=== PATIENT | male | born 1980 | race Caucasian/White ===

== ENCOUNTER 2021-11-22 11:35 | Observation (INO) | payer BC, SELFPAY ==
[2021-11-22] VITALS (67 sets, daily range): BP systolic 139–188; BP diastolic 83–129; PULSE 74–133; RESP 11–33; TEMP 36.1–37; O2SAT 91–98; BMI 27.9
--- NOTE | ~2021-11-22 | CT_ITS ---
EXAMINATION: CT brain wo con DATE: 11/22/2021 13:24 INDICATION: Headache. Chronic hypertension. TECHNIQUE: Computed tomography (CT) of the head was performed without intravenous contrast. The mA wa s adjusted according to patient size. Iterative reconstruction technique was employed. Exam dose: 68 1.00 mGy-cm total exam DLP. COMPARISON: None FINDINGS: No intracranial mass lesion or hemorrhage or cerebrovascular accident. No midline shift or mass effect. Normal ventricular size. Normal norris-white matter differentiation. No subdural or epidur al hematoma. There is patchy soft tissue opacification of the ethmoid air cell. As a mucous retention cyst or smal l polyp in the left frontal sinus posterior right maxillary sinus. There is mucoperiosteal thickening and fluid at the left maxillary sinus. The mastoid air cells are normally developed and aerated. No fracture or bone destruction of the cranial vault IMPRESSION: Paranasal sinus disease No significant intracranial abnormality Reviewed, dictated and finalized at [facility] Reviewed, dictated and finalized at [facility]. ER ESTHETICIAN
--- NOTE | 2021-11-22 13:13 | ECG_ITS ---
Measurements Intervals [place] Rate: 73 P: 21 AL: 158 QRS: -7 QRSD: 97 T: -12 QT: 377 QTc: 416 Interpretive Statements SINUS RHYTHM VOLTAGE CRITERIA FOR LVH BORDERLINE T WAVE ABNORMALITY- INFERIOR LEADS BASELINE ARTIFACT- II, III, AVR, AVF, V1-V6 BORDERLINE ECG Electronically Signed On 11-22-2021 16:57:58 [employer]ATE [employer]SEMBLER by Jose Dacosta D.O.
--- NOTE | 2021-11-22 13:15 | ED.GENADULT ---
HPI - General Adult General Chief complaint: Recheck/Abnormal Lab/Rx Stated complaint: htn Time Seen by Provider: 11/22/21 13:06 Source: patient Mode of arrival: ambulatory Limitations: no limitations History of Present Illness HPI narrative: Patient is a 41-year-old male complaining of elevated blood pressure accompanied by headache that started 2 days ago. Patient states that he was at a dentist office few days ago was told that his blood pressure is elevated and needs to go to his primary care physician or urgent care to control his blood pressure before any procedure is done. Patient denies any history of hypertension. Patient denies any speech or visual disturbance, focal weakness or numbness, unsteady gait, chest pain, shortness of breath, abdominal pain, nausea, or vomiting. Related Data Home Medications Medication Instructions Recorded Confirmed No Home Medications 11/22/21 11/22/21 Allergies Allergy/AdvReac Type Severity Reaction Status Date / Time No Known Allergies Allergy Mild Verified 11/22/21 13:16 Review of Systems Review of Systems: All systems reviewed & are unremarkable except as noted in HPI and below Constitutional: Constitutional: Denies body ache(s), Denies chills, Denies excessive sweating, Denies fatigue, Denies fever(s), Denies headache(s), Denies lethargy, Denies malaise, Denies weakness and Denies weight loss Eyes: Eyes: Denies blurry vision, Denies change in vision and Denies loss of vision ENT: Denies dizziness, Denies ear discharge, Denies headache(s), Denies lip swelling, Denies epistaxis, Denies nasal congestion, Denies neck pain, Denies throat swelling and Denies tongue swelling Cardiovascular: Cardiovascular: Denies chest pain, Denies chest pain at rest, Denies chest pain with activity, Denies diaphoresis, Denies rapid heart rate, Denies edema, Denies irregular heart rhythm, Denies lightheadedness, Denies palpitations, Denies dyspnea and Denies dyspnea on exertion Respiratory: Respiratory: Denies chest congestion, Denies cough, Denies hemoptysis, Denies dyspnea and Denies dyspnea on exertion Gastrointestinal: Gastrointestinal: Denies abdominal pain, Denies melena, Denies hematochezia, Denies diarrhea, Denies nausea, Denies vomiting and Denies hematemesis Musculoskeletal: Musculoskeletal: Denies abnormal gait, Denies deformity, Denies joint swelling, Denies limited range of motion, Denies neck pain and Denies numbness Neurologic: Denies Abnormal speech present, Denies abnormal gait, Denies confusion, Denies dizziness, Denies focal weakness, Denies loss of vision, Denies numbness, Denies Other visual disturbances, Denies Sensory deficit (Neuro) and Denies weakness Psychiatric: Psychiatric: Denies confusion, Denies depression, Denies auditory hallucinations, Denies homicidal ideation and Denies suicidal ideation Endocrine: Endocrine: Denies cold intolerance, Denies excessive sweating, Denies fatigue, Denies heat intolerance and Denies palpitations Hematologic/Lymphatic: Hematologic/Lymphatic: Denies easy bleeding and Denies easy bruising Allergic/Immunologic: Allergic/Immunologic: Denies lip swelling, Denies throat swelling and Denies tongue swelling PMFSH Comments Past medical history: None Family history: Hypertension Social history: Non-smoker no EtOH or drug use Exam Const: General: cooperative, healthy appearing, comfortable, no acute distress, well developed, alert and awake; No confusion Orientation/consciousness: oriented to person, oriented to place, oriented to time, patient oriented x3 and No confusion Limitations: no limitations HENMT: Head: normal to inspection, normocephalic and atraumatic Ears: hearing grossly normal bilaterally, TM normal on the right and TM normal on the left General nose exam: Normal external nose present, Normal nares present and No nasal discharge present Face and sinus: normal facial exam Mouth: Yes Normal oral and palatal mucosa present, Yes lip no
[2021-11-22] MEDS: ONDANSETRON INJ 4 MG/2 ML VIAL IV PUSH (14:14)
[2021-11-22] MEDS: LABETALOL HCL INJ 100 MG/20 ML VIAL 20 MG IV PUSH ×2 (14:14→19:06)
[2021-11-22 14:18] LABS: Basophils Absolute Auto 0.1 K/mm3 (0.0-0.1); Basophils Percent Auto 0.6 % (0.2-1.2); Eosinophils Percent Auto 0.3 % (0-4.4); Hematocrit 48.4 % (42.0-52.0); Hemoglobin 16.8 g/dL (14.0-18.0); Immature Granulocyte Percent A 0.9 % (0-0.5); Lymphocytes Absolute Auto 1.14 K/mm3 (0.9-3.2); Lymphocytes Percent Auto 9.9 % (18.3-44.2); Mean Corpuscular HGB Conc 34.7 g/dl (32-36); Mean Corpuscular Hemoglobin 29.1 pg (26-34); Mean Corpuscular Volume 83.7 fl (80-100); Mean Platelet Volume 10.2 fl (7.4-10.4); Monocytes Absolute Auto 0.8 K/mm3 (0.1-0.6); Monocytes Percent Auto 6.5 % (2.6-8.5); Neutrophils Absolute Auto 9.4 K/mm3 (1.3-6.7); Neutrophils Percent Auto 81.8 % (45.5-73.1); Platelet Count Result 277 k/mm3 (150-375); Red Blood Count 5.78 M/mm3 (4.6-6.20); Red Cell Distribution Width 12.3 % (11.5-14.5); White Blood Count 11.5 K/mm3 (4.5-10.0)
[2021-11-22 14:29] LABS: Anion Gap 9 mmol/L (8-16); Blood Urea Nitrogen 12 mg/dL (9-20); Calcium 9.3 mg/dL (8.4-10.2); Carbon Dioxide 26 mmol/L (22-30); Chloride 100 mmol/L (98-107); Estimated CRCL calculation 92 ml/min; Estimated Glomerular Filt Rate > 60; Glucose 142 mg/dL (65-110); Potassium 4.1 mmol/L (3.4-5.0); Sodium 135 mmol/L (137-145)
[2021-11-22] MEDS: hydrALAZINE HCL 20 MG/ML VIAL 10 MG IV PUSH ×2 (14:50→16:40)
--- NOTE | 2021-11-22 15:21 | ECG_ITS ---
Measurements Intervals [place] Rate: 108 P: 57 SD: 127 QRS: 72 QRSD: 79 T: 7 QT: 315 QTc: 423 Interpretive Statements SINUS TACHYCARDIA NONSPECIFIC T-WAVE ABNORMALITY- ANT/INF LEADS BASELINE WANDER- I, III ABNORMAL ECG Electronically Signed On 11-23-2021 14:27:49 [employer]ICE MACHINE MECHANIC by Jose Dacosta D.O.
[2021-11-22] MEDS: LACTATED RINGERS 1,000 ML 125 ML IV CONT (18:34)
--- NOTE | 2021-11-22 18:43 | PC.NURSE ---
Pt had an additional episode of emesis, BP 180/100. MD aware, verbal order to give 12.5 IV phenergan and PRN Labetalol for HTN
[2021-11-22] MEDS: PROMETHAZINE HCL 25 MG/ML AMPUL 12.5 MG IV PUSH (19:06)
--- NOTE | 2021-11-22 19:14 | PC.NURSE ---
Mini NS bag used to dilute phenergan
--- NOTE | 2021-11-22 20:16 | PM.IMHP ---
H&P: HPI History of Present Illness Date/Time: 11/22/21 20:16 Chief Complaint: Headache Narrative: This is a 41-year-old male with past medical history significant for hypertension according to the patient is was diagnosed roughly 2 years ago however patient has not had any treatment for it. Patient comes to the emergency room today after he was seeking out medical care for his uncontrolled blood pressure he had been in to the dentist for a procedure but could not get it done due to his blood pressure being high and was advised to go to the emergency room. At the time of my visit patient was complaining of a slight headache much better from arrival after patient received labetalol and hydralazine. Patient denies any chest pain, any blurry vision, dizziness, lightheadedness, near-syncope, syncope, claudication, ankle swelling, PND ,orthopnea, no cough, however patient had an episode of nausea and vomiting in the emergency room. Preliminary workup was significant for CT of the head with no intracranial abnormalities. Decision has been made to admit the patient for further evaluation management and treatment. Review of Systems Review of Systems: Headache, High blood pressure. Constitutional: Constitutional: Denies chills, Denies excessive sweating, Denies fatigue, Denies fever(s), Reports headache(s) and Denies night sweats Eyes: Eyes: Denies change in vision ENT: Denies dysphagia, Denies vertigo, Denies dizziness, Reports headache(s), Denies nasal congestion, Denies nasal discharge, Denies nasal obstruction and Denies odynophagia Cardiovascular: Cardiovascular: Denies chest pain, Denies pedal edema, Denies irregular heart rhythm, Denies leg edema, Denies lightheadedness, Denies radiating jaw, neck or arm pain, Denies palpitations, Denies dyspnea, Denies dyspnea on exertion and Denies orthopnea Respiratory: Respiratory: Denies cough, Denies excessive phlegm production, Denies dyspnea and Denies wheezing Gastrointestinal: Gastrointestinal: Denies abdominal pain, Denies dyspepsia, Denies heartburn, Reports nausea and Reports vomiting Genitourinary: Genitourinary: Denies dysuria and Denies flank pain Musculoskeletal: Musculoskeletal: Denies myalgias Integumentary/Breasts: Skin/Breast: Denies rash Neurologic: Denies vertigo, Denies dizziness, Denies syncope, Reports headache(s), Denies focal weakness and Denies Sensory deficit (Neuro) Psychiatric: Psychiatric: Reports no additional psychiatric complaints and Reports as per HPI Endocrine: Endocrine: Denies polyphagia, Denies polydipsia, Denies polyuria and Denies palpitations Hematologic/Lymphatic: Hematologic/Lymphatic: Reports no additional hematologic/lymphatic complaints and Reports as per HPI Allergic/Immunologic: Allergic/Immunologic: Reports no additional allergic/immunologic complaints and Reports as per HPI [facility] Family History Family History (Updated 11/22/21 @ 21:28 by Demetra Haynes RN) Other Unknown family medical history Social History Social History Smoking status: Never smoker Alcohol intake: current Drinks per week: 1 Substance use: never Spiritual care concerns: No Meds Home Medications and Allergies Home Medications Medication Instructions Recorded Confirmed Type Adults Multivitamin 1 tab-cap PO DAILY 11/22/21 11/22/21 History lisinopril 20 mg PO DAILY #30 tablet 11/22/21 Rx Allergies Allergy/AdvReac Type Severity Reaction Status Date / Time No Known Allergies Allergy Mild Verified 11/22/21 13:16 Vital Signs Vital Signs - 24 hr 11/22/21 12:01 11/22/21 13:05 11/22/21 13:12 Temperature 98.6 F Pulse Rate 82 90 Respiratory Rate 16 15 Blood Pressure 180/129 H 188/120 H 188/120 H Pulse Oximetry 96 97 11/22/21 13:15 11/22/21 13:16 11/22/21 13:42 Temperature Pulse Rate 83 82 83 Respiratory Rate 14 15 13 Blood Pressure 184/118 H 184/118 H Pulse Oximetry 98 97 96 11/22/21 13:45 11/22/21 13:46 1
--- NOTE | 2021-11-22 21:28 | ADMGEN ---
This patient, Fidel Montes, was admitted to Medical Room 247-. Patient/family oriented to hospital policies and general routines including ID bracelet, bed and alarms, visiting hours, pain management, procedures, bathroom and other care routines, personal items, smoking policy, room service/diet, and visiting hours. Information on how to activate the Rapid Response Team has been discussed. Patient/Family are encouraged to report perceived risks to care and to ask questions if they do not understand what they are told or what they should do.
[2021-11-23] VITALS (15 sets, daily range): BP systolic 128–148; BP diastolic 72–101; PULSE 79–110; RESP 16–18; TEMP 36.1–36.7; O2SAT 94–99
--- NOTE | 2021-11-23 | ECHO_ITS ---
Patient Info Name: Fidel Montes Age: 41 years : 1980 Gender: Male Ht: 71 in Wt: 200 lbs BSA: 2.15 m2 HR: 87 bpm BP: 128 / 72 mmHg Heart Rhythm: Sinus Rhythm Technical Quality: Good Exam Date: 11/23/2021 7:00 AM Exam Location: [facility] Patient Status: Inpatient Admit Date: 11/22/2021 Staff Ordering Physician: Westley Oro MD Screwhead Stoner And Polisher: Shonna Hernandez RDCS Attending Provider: Andrea Donis MD Referring Physician: Shorty GRULLON; Exam Type: CA echo doppler color flow Study Info Indications - htn Complete two-dimensional, color flow and Doppler transthoracic echocardiogram is performed. Summary 1. Complete two-dimensional, color flow and Doppler transthoracic echocardiogram is performed. 2. Left ventricular chamber dimension is normal. 3. Left ventricular systolic function is normal, estimated at 60-65%. 4. There is mildly increased left ventricular wall thickness. 5. The left ventricular diastolic function is normal. 6. There is mild mitral valve regurgitation. 7. There is mild pulmonic regurgitation. Left Ventricle Left ventricular chamber dimension is normal. Left ventricular systolic function is normal, estimated at 60-65%. There is mildly increased left ventricular wall thickness. The left ventricular diastolic function is normal. Right Ventricle Right ventricular chamber dimension is normal. Right ventricular systolic function is normal. Left Atria Left atrial chamber dimension is normal. Right Atria Right atrial chamber dimension is normal. Atrial Septum Intact interatrial septum visualized by color flow imaging. Aortic Valve The aortic valve is trileaflet. There is no aortic valve sclerosis. There is no aortic valve stenosis. There is trace aortic valve regurgitation. Pulmonic Valve The pulmonic valve is normal. There is no pulmonic valve stenosis. There is mild pulmonic regurgitation. Mitral Valve The mitral valve has normal leaflets. There is no mitral valve stenosis. There is mild mitral valve regurgitation. Tricuspid Valve The tricuspid valve leaflets are normal. There is no significant tricuspid valve stenosis. There is trace tricuspid valve regurgitation. Pericardium/Pleural The pericardium appears normal. There is no pericardial effusion. Aorta The aortic root size at the sinus of Valsalva is normal. The prox ascending aorta size is normal. Left Ventricular Outflow Tract Name Value Normal LVOT 2D LVOT Diameter 2.2 cm LVOT Doppler LVOT Peak Gradient 4 mmHg LVOT Mean Gradient 1 mmHg LVOT VTI 18 cm LVOT VTI/AV VTI Ratio 0.9 LVOT Stroke Volume 73 ml LVOT CO 6.0 l/min LVOT CI 2.9 l/min/m2 Pulmonic Valve Name Value Normal
[2021-11-23] MEDS: IMIPRAMINE HCL 25 MG TABLET PO ×2 (01:26→20:06)
[2021-11-23] MEDS: LACTATED RINGERS 1,000 ML 125 ML IV CONT (06:08)
[2021-11-23] MEDS: hydroCHLOROthiazide 25 MG TABLET PO (08:10)
[2021-11-23] MEDS: lisinopriL 20 MG TABLET 40 MG PO (08:10)
--- NOTE | 2021-11-23 09:09 | PM.IMPN ---
Progress Note: A&P Assessment and Plan (1) Hypertensive urgency: Code(s): I16.0 - Hypertensive urgency Status: Acute Assessment and Plan: BP improving with antihypertensives Continue lisinopril 40 p.o. daily and hydrochlorothiazide 25 p.o. daily Renal ultrasound pending Echocardiogram pending CT-->no significant intracranial abnormality ECG showed NSR Nephrology consulted Tele monitoring (2) Frontal headache: Code(s): R51.9 - Headache, unspecified Status: Acute Assessment and Plan: Likely secondary to uncontrolled blood pressure Supportive care Continue to monitor CT head with no acute intracranial abnormality (3) Nausea and vomiting: Code(s): R11.2 - Nausea with vomiting, unspecified Status: Acute Assessment and Plan: Likely secondary to uncontrolled blood pressure Supportive care Continue to monitor Additional Plan SCDs Subjective Date/time seen: 11/23/21 09:09 Interval history: Pt seen this a.m.; no acute events overnight; pt denies any [place], dizziness, CP, SOB Review of Systems Review of Systems: All systems reviewed & are unremarkable except as noted in HPI and below Exam Const: General: no acute distress, alert and awake Orientation/consciousness: patient oriented x3 HENMT: Head: normocephalic and atraumatic Ears: hearing grossly normal bilaterally Face and sinus: face symmetric Mouth: Yes Normal oral and palatal mucosa present Eyes: EOM: EOMs intact bilaterally Neck: Neck: full ROM, trachea midline and no JVD Resp: Effort & Inspection: normal respiratory effort Auscultation: clear to auscultation bilaterally Cardio: Jugular venous distension: no JVD Rate: regular rate Rhythm: regular rhythm Heart sounds: S1 normal heart sound present and S2 normal heart sound present GI: GI Palp: Yes Soft to palpation Auscultation: normal bowel sounds : General: Yes no CVA tenderness Skin: General skin exam: normal color Rashes: no rashes Neuro: General: patient oriented x3, moves all extremities and no focal motor deficits Speech: normal speech Extrem: General: no clubbing, cyanosis or edema Psych: Appearance: grossly normal Affect: normal affect Judgement: Good judgement present (Psych) Objective Data Vital Signs Vital Signs: Vital Signs - 24 hr 11/22/21 12:01 11/22/21 13:05 11/22/21 13:12 Temperature 37.0 C Pulse Rate 82 90 Respiratory Rate 16 15 Blood Pressure 180/129 H 188/120 H 188/120 H Pulse Oximetry 96 97 11/22/21 13:15 11/22/21 13:16 11/22/21 13:42 Temperature Pulse Rate 83 82 83 Respiratory Rate 14 15 13 Blood Pressure 184/118 H 184/118 H Pulse Oximetry 98 97 96 11/22/21 13:45 11/22/21 13:46 11/22/21 14:00 Temperature Pulse Rate 78 75 Respiratory Rate 11 L 15 16 Blood Pressure 170/114 H 170/114 H Pulse Oximetry 95 96 11/22/21 14:15 11/22/21 14:16 11/22/21 14:30 Temperature Pulse Rate 83 80 78 Respiratory Rate 20 20 13 Blood Pressure 174/105 H 174/105 H 180/112 H Pulse Oximetry 96 96 94 11/22/21 14:31 11/22/21 14:32 11/22/21 14:46 Temperature Pulse Rate 79 78 94 Respiratory Rate 12 15 Blood Pressure 180/112 H 170/114 H 170/114 H Pulse Oximetry 95 94 94 11/22/21 14:53 11/22/21 14:54 11/22/21 14:55 Temperature Pulse Rate 74 75 80 Respiratory Rate 18 17 13 Blood Pressure 175/106 H 175/106 H Pulse Oximetry 96 95 93 11/22/21 15:00 11/22/21 15:01 11/22/21 15:15 Temperature Pulse Rate 87 98 85 Respiratory Rate 19 20 16 Blood Pressure 165/106 H 163/106 H 164/100 H Pulse Oximetry 95 96 94 11/22/21 15:30 11/22/21 15:31 11/22/21 15:45 Temperature Pulse Rate 86 106 H 87 Respiratory Rate 15 17 13 Blood Pressure 160/104 H 160/104 H 158/100 H Pulse Oximetry 94 96 96 11/22/21 15:52 11/22/21 16:00 11/22/21 16:15 Temperature Pulse Rate 93 94 93 Respiratory Rate 21 H 15 14 Blood Pressure 169/120 H Pulse Oximetry 96 95 93 11/22/21 16
[2021-11-24] VITALS: PULSE 78
[2021-11-24 03:47] VITALS: BP 126/83; PULSE 86; RESP 18; TEMP 36.6; O2SAT 97
[2021-11-24 04:00] VITALS: PULSE 95
[2021-11-24 05:06] LABS: Hematocrit 47.7 % (42.0-52.0); Hemoglobin 15.7 g/dL (14.0-18.0); Mean Corpuscular HGB Conc 32.9 g/dl (32-36); Mean Corpuscular Hemoglobin 28.3 pg (26-34); Mean Corpuscular Volume 86.1 fl (80-100); Mean Platelet Volume 9.8 fl (7.4-10.4); Platelet Count Result 250 k/mm3 (150-375); Red Blood Count 5.54 M/mm3 (4.6-6.20); Red Cell Distribution Width 12.6 % (11.5-14.5)
[2021-11-24 05:30] LABS: Anion Gap 0 mmol/L (8-16); Blood Urea Nitrogen 16 mg/dL (9-20); Calcium 9.2 mg/dL (8.4-10.2); Carbon Dioxide 34 mmol/L (22-30); Chloride 101 mmol/L (98-107); Estimated CRCL calculation 72 ml/min; Estimated Glomerular Filt Rate > 60; Glucose 104 mg/dL (65-110); Potassium 4.4 mmol/L (3.4-5.0); Sodium 135 mmol/L (137-145)
--- NOTE | 2021-11-24 08:05 | PM.IMPN ---
Progress Note: A&P Assessment and Plan (1) Hypertensive urgency: Code(s): I16.0 - Hypertensive urgency Status: Acute Assessment and Plan: BP improving with antihypertensives Continue lisinopril 40 p.o. daily and hydrochlorothiazide 25 p.o. daily Renal ultrasound pending Echocardiogram normal CT-->no significant intracranial abnormality ECG showed NSR Nephrology consulted Tele monitoring (2) Frontal headache: Code(s): R51.9 - Headache, unspecified Status: Acute Assessment and Plan: Likely secondary to uncontrolled blood pressure Supportive care Continue to monitor CT head with no acute intracranial abnormality (3) Nausea and vomiting: Code(s): R11.2 - Nausea with vomiting, unspecified Status: Acute Assessment and Plan: Likely secondary to uncontrolled blood pressure Supportive care Continue to monitor Additional Plan SCDs Subjective Date/time seen: 11/24/21 08:05 Interval history: 11/24/2021 Review of Systems Review of Systems: All systems reviewed & are unremarkable except as noted in HPI and below Exam Narrative: GENERAL: The patient is well developed, not in acute distress HEENT: Nonicteric sclerae, PERRLA, EOMI. Oropharynx clear. Moist mucous membranes. Conjunctivae appear well perfused. CHEST: Chest wall is nontender. HEART: Regular rate and rhythm without murmur, rubs, or gallops LUNGS: Clear to auscultation bilaterally. no respiratory distress ABDOMEN: Soft, positive bowel sounds, non-tender, no organomegaly. SKIN: No rash, no excessive bruising, petechiae, or purpura. NEUROLOGIC: Cranial nerves II-XII intact, alert and oriented x 3, no gross motor deficits EXTREMITIES: no edema, cyanosis or clubbing Objective Data Vital Signs Vital Signs: Vital Signs - 24 hr 11/23/21 10:00 11/23/21 10:36 11/23/21 12:00 Temperature 97.0 F L Pulse Rate 79 92 Respiratory Rate 16 Blood Pressure 139/89 147/89 H Pulse Oximetry 99 11/23/21 13:36 11/23/21 16:00 11/23/21 18:00 Temperature 97.3 F L 98.0 F Pulse Rate 83 97 92 Respiratory Rate 18 16 Blood Pressure 148/90 H 141/83 H Pulse Oximetry 99 96 11/23/21 19:57 11/23/21 20:00 11/23/21 23:27 Temperature 97.8 F 97.3 F L Pulse Rate 79 86 86 Respiratory Rate 17 17 18 Blood Pressure 134/86 142/93 H Pulse Oximetry 97 97 96 11/24/21 00:00 11/24/21 03:47 11/24/21 04:00 Temperature 97.8 F Pulse Rate 78 86 95 Respiratory Rate 18 Blood Pressure 126/83 Pulse Oximetry 97 Intake/Output Intake/Output: Intake & Output 11/21/21 11/22/21 11/23/21 11/24/21 23:59 23:59 23:59 23:59 Intake Total 2770 1200 Balance 2770 1200 Meds/Results Medications: Active Medications Generic Name Dose Route Start Last Admin Trade Name Freq PRN Reason Stop Dose Admin Hydrochlorothiazide 25 mg 11/23/21 09:00 11/23/21 08:10 Hydrochlorothiazide 25 Mg Tablet PO 25 mg QAM YENIFER Administration Imipramine HCl 25 mg 11/23/21 01:20 11/23/21 20:06 Imipramine Hcl 25 Mg Tablet PO 25 mg HS YENIFER Administration Labetalol HCl 20 mg 11/22/21 21:00 11/22/21 19:06 Labetalol Hcl Inj 100 Mg/20 Ml Vial IV PUSH 20 mg Q4H PRN Administration HIGH BP Lisinopril 40 mg 11/23/21 09:00 11/23/21 08:10 Lisinopril 20 Mg Tablet PO 40 mg QAM YENIFER Administration Radiology Results: ITS Impressions Head CT 11/22/21 13:29 IMPRESSION: Paranasal sinus disease No significant intracranial abnormality Labs Labs: Laboratory Results - last 24 hr 11/24/21 11/24/21 04:55 04:55 WBC 9.0 RBC 5.54 Hgb 15.7 Hct 47.7 MCV 86.1 MCH 28.3 MCHC 32.9 RDW 12.6 Plt Count 250 MPV 9.8 Sodium 135 L Potassium 4.4 Chloride 101 Carbon Dioxide 34 H Anion Gap 0 L BUN 16 Creatinine 1.30 Estim Creat Clear Calc 72 Estimated GFR > 60 Glucose 104 Calcium 9.2
[2021-11-24 08:15] VITALS: BP 128/70
[2021-11-24] MEDS: hydroCHLOROthiazide 25 MG TABLET PO (08:36)
[2021-11-24] MEDS: lisinopriL 20 MG TABLET 40 MG PO (08:36)
--- NOTE | 2021-11-24 08:54 | PM.DS ---
DS: Admitting Diagnosis Discharge Date 11/24/2021 Admitting Diagnosis hypertension DS: Discharge Diagnosis Discharge Diagnosis (1) Hypertensive urgency: Code(s): I16.0 - Hypertensive urgency Status: Acute Assessment and Plan: BP improving with antihypertensives. Was on lisinopril 20 mg daily which was uptitrated to lisinopril 40 mg daily along with hydrochlorothiazide 25 mg daily. Blood pressure had improved significantly was normal by the time of discharge. He has history of long-term hypertension not adequately controlled and on no medication. Echocardiogram was done which was negative CT scan of the head was done which showed no significant intracranial abnormality. EKG with normal sinus rhythm. No abnormal heart rhythm on telemetry monitoring. No history of drug abuse. Discussed diet and physical activity with the patient during the visit and home monitoring along with regular follow-up with primary care doctor. (2) Frontal headache: Code(s): R51.9 - Headache, unspecified Status: Acute Assessment and Plan: Likely secondary to uncontrolled blood pressure Supportive care Continue to monitor CT head with no acute intracranial abnormality But does show some sinus disease which is chronic no acute symptoms currently Discussed alarm findings for evaluation but suggested regular follow-up with primary care and maintenance on low-salt diet (3) Nausea and vomiting: Code(s): R11.2 - Nausea with vomiting, unspecified Status: Acute Assessment and Plan: Likely secondary to uncontrolled blood pressure Supportive care Continue to monitor DS: Summary Hospital Course Hospital Course: see above Time Spent with Patient Time attestation: Total time spent providing and/or coordinating discharge services: 35 minutes Exam Narrative: GENERAL: The patient is well developed, not in acute distress HEENT: Nonicteric sclerae, PERRLA, EOMI. Oropharynx clear. Moist mucous membranes. Conjunctivae appear well perfused. CHEST: Chest wall is nontender. HEART: Regular rate and rhythm without murmur, rubs, or gallops LUNGS: Clear to auscultation bilaterally. no respiratory distress ABDOMEN: Soft, positive bowel sounds, non-tender, no organomegaly. SKIN: No rash, no excessive bruising, petechiae, or purpura. NEUROLOGIC: Cranial nerves II-XII intact, alert and oriented x 3, no gross motor deficits EXTREMITIES: no edema, cyanosis or clubbing DS: Data Data Completed and Pending Completed studies during hospitalization: Date of Service: 11/23/21 Procedure(s): CA echo doppler color flow Accession Number(s): [id number] cc: Westley Oro MD; Lazarus, Amrita RAMOS~ Patient Info Name: Fidel Montes Age: 41 years : 1980 Gender: Male Ht: 71 in Wt: 200 lbs BSA: 2.15 m2 HR: 87 bpm BP: 128 / 72 mmHg Heart Rhythm: Sinus Rhythm Technical Quality: Good Exam Date: 11/23/2021 7:00 AM Exam Location: [facility] Pulmonary Patient Status: Inpatient Admit Date: 11/22/2021 Staff Ordering Physician: Westley Oro MD Puller Machine: Shonna Hernandez RDCS Attending Provider: Andrea Donis MD Referring Physician: Shorty GRULLON; Exam Type: CA echo doppler color flow Study Info Indications - htn Complete two-dimensional, color flow and Doppler transthoracic echocardiogram is performed. Summary 1. Complete two-dimensional, color flow and Doppler transthoracic echocardiogram is performed. 2. Left ventricular chamber dimension is normal. 3. Left ventricular systolic function is normal, estimated at 60-65%. 4. There is mildly increased left ventricular wall thickness. 5. The left ventricular diastolic function is normal. 6. There is mild mitral valve regurgitation. 7. There is mild pulmoni
== END 2021-11-24 11:58 | disposition home or self-care (01) ==
LOC: ANHED 16:23 → ANH2MED 11-23 03:22
PROVIDERS: Nurse Practitioner Adult Health; Admitting Provider Internal Medicine; Emergency Provider Emergency Medicine; PCP Physician Assistant; Visit Provider Internal Medicine
DX: I16.0 Hypertensive urgency (principal); R51.9 Headache, unspecified; I10 Essential (primary) hypertension; R11.2 Nausea with vomiting, unspecified
CPT/HCPCS: 36415; 70450; 80048; 85025; 85027; 93005; 93306; 96361; 96374; 96375; 96376; 99285; A9270; G0378; J0360; J2405; J2550; J7120